=== PATIENT | male | born 1990 | race Two or more races ===

== ENCOUNTER 2020-06-21 19:25 | Emergency (ER) | payer OTHER ==
[~2020-06-21] VITALS: Ht 167.6 cm; Wt 77.1 kg
[2020-06-21 20:33] VITALS: BP 131/84
[2020-06-21] MEDS ORDERED: cefTRIAXone SOD 1,000 MG VL IM ONE (20:45)
[2020-06-21] MEDS ORDERED: IBUPROFEN 800 MG TAB PO ONE (20:45)
[2020-06-21] MEDS ORDERED: TETANUS-DIPTH-ACEL PERTUSSIS 0.5ML SYR Tdap IM ONE (20:45)
[2020-06-21 22:54] LABS: Hepatitis B Surface Antibody Positive
[2020-06-22 00:20] LABS: Hepatitis B Surface Antigen Negative (Negative)
== END 2020-06-21 22:50 | disposition home or self-care (01) ==
LOC: ER 19:25
DX: S00.83XA Contusion of other part of head, initial encounter (principal); S61.214A Laceration without foreign body of right ring finger without damage to nail, initial encounter; X58.XXXA Exposure to other specified factors, initial encounter; Y93.89 Activity, other specified; Y92.89 Other specified places as the place of occurrence of the external cause; Y99.8 Other external cause status
CPT/HCPCS: 29130; 36415; 70450; 73130; 86703; 86706; 86803; 87340; 90471; 90715; 96372; 99284; J0696